=== PATIENT | female | born 1955 | race Caucasian/White ===

== ENCOUNTER → 2017-05-12 09:26 | Outpatient (POV) | payer MEDICARE, SELFPAY | PROVIDERS: Visit Provider Physician Assistant | DX: Z00.00 Encounter for general adult medical examination without abnormal findings (principal) ==

== ENCOUNTER → 2017-06-09 09:17 | Outpatient (POV) | payer MEDICARE, SELFPAY | PROVIDERS: Visit Provider Physician Assistant | DX: Z00.00 Encounter for general adult medical examination without abnormal findings (principal) ==

== ENCOUNTER 2023-07-08 12:32 | Outpatient (CLI) | payer MEDICARE, SELFPAY ==
--- OUTSIDE RECORDS SUMMARY | 2023-07-08 12:36 | XMS_ITS | Continuity of Care Document ---
Author Name Unknown Address [address] [place] [phone] Organization [facility] Phone Care Team Providers Care Regional Program Manager Name Role Phone GREY SALDAÑA Admitting GREY SALDAÑA Unavailable GREY SALDAÑA Primary Care GREY SALDAÑA Primary Attending ALLERGIES AND ADVERSE REACTIONS ALLERGIES AND ADVERSE REACTIONS Code System Allergy Substance Adverse Reaction Date Reaction (Severity) Comment Status Reported By Updated By [id number] RXNorm Penicillin Adverse reaction to substance rash active [id number] on January 25, 2014 12:23:04 PM [facility] FAMILY HISTORY RELATION: Mother Status: Cause of : Unknown Age at : Unknown SNOMED-CT Diagnosis Age At Onset [id number] Congestive heart failure RELATION: Brother Status: LIVING SNOMED-CT Diagnosis Age At Onset [id number] Malignant tumor of colon RELATION: Sister Status: LIVING SNOMED-CT Diagnosis Age At Onset [id number] Primary fibromyalgia syndrome RESULTS Patient: VINICIUS Khan Date of : 1955 LABORATORY RESULTS Information is not available LABORATORY NARRATIVE RESULTS Information is not available RADIOLOGY RESULTS ORDER 100: CT CHEST LOW DOSE (LOINC: [id number]) ORDER DATE: May 21, 2023 6:11:00 PM [facility] PERFORMING LAB: [address] [id number] Final Result Date: May 21, 2023 6:48:[address] [place] [address] Name: ROSA COLVIN Exam Date: 05/21/2023 : 1955 Age 67 years Gender: F Physician: GREY SALDAÑA Facility: [facility] Facility HSV: Outpatient Exam: CT CHEST LOW DOSE CT CHEST LOW DOSE SCREENING HISTORY: Former smoker, quit 18-20 years prior. 20 pack year history. COMPARISON: None. TECHNIQUE: Axial images were obtained from the lung apices through the midabdomen by computed tomography without the administration of contrast. This was performed as a low dose chest CT for lung cancer screening. This study was performed with techniques to keep radiation doses as low as reasonably achievable, (ALARA). Individualized dose reduction techniques using automated exposure control or adjustment of mA and/or kV according to the patient's size were employed. CTDI: 3.64 mGy DLP: 109.53 mGy*cm FINDINGS: There is no axillary adenopathy. There is no mediastinal or hilar adenopathy. Heart size is normal. There is no pericardial or pleural effusion. The lungs demonstrate mild emphysema. There is no consolidation or pneumothorax. There are punctate calcified granulomas identified. There is no suspicious pulmonary mass or nodule. There is sequela of old trauma involving the anterior left chest wall. Degenerative changes are identified in the spine. No acute bony abnormality is identified. Limited images of the upper abdomen are unremarkable. IMPRESSION: No suspicious pulmonary nodule. LUNG RADS Category 1. Recommend continued annual screening with low-dose chest CT in 12 months. The films were reviewed, interpreted, and dictated by Dr. Lesley Marks Transcribed by Libby Burnham PA-C Dictated By: ANDRE MARKS Transcribed By: ANDRE MARKS Transcribed On: 05/21/2023 2:48 PM Electronically signed by: ANDRE MARKS 05/21/2023 Thank you for referring ROSA COLVIN to [facility]. Legally authenticated by CANDIS Nava MD 2023-05-21 14:48:47 PATHOLOGY NARRATIVE RESULTS Information is not available MICROBIOLOGY RESULTS No Micro Labs/Results Exist for Patient BLOOD ADMIN RESULTS Information is not available MEDICATIONS HOME MEDICATIONS Status RXNORM NDC Medication Dose Route Frequency Dates Comments Reported By Updated By Drug Treatment Unknown DISCHARGE MEDICATIONS Status RXNORM NDC Medication Dose Route Frequency Dates Comments Physician Updated By No Discharge Medication Info rmation Available INPATIENT MEDICATIONS Status RXNORM NDC Medication Dose Route Frequency Rat e Quantity Dates Comments Physician Updated By No Inpatient Medication Info rmation Available SOCIAL HISTORY SOCIAL HISTORY SNOMED-CT Social History Element Description Effective Dates Offered Cessation Comment UpdatedBy [id number] Historical Tobacco smoking status Former Smoker Yes quit 25 years ago [id number] on January 19, 2014 2:38:12 PM [facility] SOCIAL HISTORY - Gender Sex: Female SOCIAL HISTORY - Status : status i nformation is not available Intention in Next Year: intention information is not available SOCIAL HISTORY - Sexual Behavior Sexual Orientation Gender Identity SNOMED-CT Description SNO MED -CT Description Activity Level No of Partners Partner Type UpdatedBy Information is not available HEALTH CONCERNS Problems Concern Status Health Concern problem infor mation not available. Smoking Status Status Years Used Consumed packs p er day Health Concern smoking histo ry information not available. Family History Concern Status Health Concern family histor y information not available. ENCOUNTERS ENCOUNTER INFORMATION Reason for Visit Not Specified Admission May 21, 2023 6:00:[address] [address] Discharge May 21, 2023 11:00:00 PM [facility] D ISCHARGED TO HOME OR SELF CARE ENCOUNTER DIAGNOSES Notes information is not rajwinder ilable. Code System Diagnosis Onset Date Diagnosis information is not available. ABSTRACT DIAGNOSES Code System Diagnosis Updated By F17.210 ICD10 NICOTINE DEPENDE NCE, CIGARETTES, UNCOMPLICATED [id number] on May 19, 2023 1:26:10 PM [facility] CARE TEAM Care Regional Program Manager Role GREY SALDAÑA Admitting GREY SALDAÑA Referring GREY SALDAÑA Primary Care GREY SALDAÑA Primary Attending CARE TEAM CARE director industrial museum Role on Team Status Start Date End Date Update d By PIPER MASSEY PCP normal May 19, 2023 1:26:11 PM [facility] May 21, 2023 11:00:00 PM [facility] [id number] on May 19, 2023 1:26:11 PM [facility] PIPER MASSEY Referring normal May 19, 2023 1:26:10 PM [facility] May 21, 2023 11:00:00 PM [facility] [id number] on May 19, 2023 1:26:11 PM [facility] PIPER MASSEY Attending normal May 19, 2023 1:26:10 PM [facility] May 21, 2023 11:00:00 PM [facility] [id number] on May 19, 2023 1:26:11 PM [facility] PIPER MASSEY Admitting normal May 19, 2023 1:26:10 PM [facility] May 21, 2023 11:00:00 PM [facility] [id number] on May 19, 2023 1:26:11 PM [facility]
--- OUTSIDE RECORDS SUMMARY | 2023-07-08 12:36 | XMS_ITS | Continuity of Care Document ---
Author Name Unknown Address [address] [facility] [place], [place] [phone] Organization [facility] Phone Care Team Providers Care Robot Technician Name Role Phone GREY SALDAÑA Unavailable GREY SALDAÑA Admitting GREY SALDAÑA Primary Attending GREY SALDAÑA Primary Care ALLERGIES AND ADVERSE REACTIONS ALLERGIES AND ADVERSE REACTIONS Code System Allergy Substance Adverse Reaction Date Reaction (Severity) Comment Status Reported By Updated By 7984 RXNorm Penicillin Adverse reaction to substance rash active [id number] on January 25, 2014 12:23:04 PM [facility] FAMILY HISTORY RELATION: Mother Status: Cause of : Unknown Age at : Unknown SNOMED-CT Diagnosis Age At Onset [id number] Congestive heart failure RELATION: Brother Status: LIVING SNOMED-CT Diagnosis Age At Onset [id number] Malignant tumor of colon RELATION: Sister Status: LIVING SNOMED-CT Diagnosis Age At Onset [id number] Primary fibromyalgia syndrome TREATMENT PLAN DISCHARGE MEDICATIONS Status RXNORM Medication Dose Route Frequency Dates Comments U pdated By Patient discharge medication information is not available. PATIENT OPEN ORDERS Code System Description Frequency Occurrences Priority [place] [address] [facility] Skeletal system DXA Bone density ONE TIME 0 Routine June 02, 2023 5:25:00 PM [facility] PIPER ARIZMENDI [id number] on June 02, 2023 5:25:00 PM [facility] SCHEDULED PROCEDURES Code System Description Status Scheduled Date Upd ated By Patient scheduled procedure information is not available. MEDICATIONS HOME MEDICATIONS Status RXNORM NDC Medication [...] Description Effective Dates Offered Cessation Comment UpdatedBy [id number] Historical Tobacco smoking status Former Smoker Yes quit 25 years ago [id number] on January 19, 2014 2:38:12 PM [facility] SOCIAL HISTORY - Gender Sex: Female SOCIAL [...] INFORMATION Reason for Visit Not Specified Admission June 02, 2023 4:40:[address] [address] Discharge June 02, 2023 4:40:00 PM [facility] DIS CHARGED TO HOME OR SELF CARE ENCOUNTER DIAGNOSES Notes information is not rajwinder ilable. Code System Diagnosis Onset Date Diagnosis information is not available. ABSTRACT DIAGNOSES Code System Diagnosis Updated By Z13.820 ICD10 ENCOUNTER FOR SC REENING FOR OSTEOPOROSIS [id number] on May 22, 2023 3:41:47 PM [facility] CARE TEAM Care Robot Technician Role GREY SALDAÑA Referring GREY SALDAÑA Admitting GREY SALDAÑA Primary Attending GREY SALDAÑA Primary Care CARE TEAM CARE daycare teacher Role on Team Status Start Date End Date Update d By PIPER MASSEY PCP normal May 22, 2023 3:41:47 PM [facility] June 02, 2023 4:40:00 PM [facility] [id number] on May 22, 2023 3:41:47 PM [facility] PIPER MASSEY Referring normal May 22, 2023 3:41:47 PM [facility] June 02, 2023 4:40:00 PM [facility] [id number] on May 22, 2023 3:41:47 PM [facility] PIPER MASSEY Attending normal May 22, 2023 3:41:47 PM [facility] June 02, 2023 4:40:00 PM [facility] [id number] on May 22, 2023 3:41:47 PM [facility] PIPER MASSEY Admitting normal May 22, 2023 3:41:47 PM [facility] June 02, 2023 4:40:00 PM [facility] [id number] on May 22, 2023 3:41:47 PM [facility]
--- OUTSIDE RECORDS SUMMARY | 2023-07-08 12:36 | XMS_ITS | Continuity of Care Document ---
Author Name Unknown Address [address] [place] [phone] Organization [facility] Phone Care Team Providers Care Pipe Covering Molder Name Role Phone GREY SALDAÑA Primary Attending GREY SALDAÑA Unavailable GREY SALDAÑA Admitting GREY SALDAÑA Primary Care ALLERGIES AND ADVERSE REACTIONS ALLERGIES AND ADVERSE REACTIONS Code System Allergy Substance Adverse Reaction Date Reaction (Severity) Comment Status Reported By Updated By 7971 RXNorm Penicillin Adverse reaction to substance rash active [id number] on January 25, 2014 12:23:04 PM [facility] FAMILY H[facility] RELATION: Mother Status: Cause of : Unknown Age at : Unknown SNOMED-CT Diagnosis Age At Onset [id number] Congestive heart failure RELATION: Brother Status: LIVING SNOMED-CT Diagnosis Age At Onset [id number] Malignant tumor of colon RELATION: Sister Status: LIVING SNOMED-CT Diagnosis Age At Onset [id number] Primary fibromyalgia syndrome RESULTS Patient: VINICIUS Khan Date of : 1955 LABORATORY RESULTS Information is not available LABORATORY NARRATIVE RESULTS Information is not available RADIOLOGY RESULTS ORDER 100: ECHOCARDIOGRAM (L OINC: [id number]) ORDER DATE: June 13, 2023 6:16:00 PM [facility] PERFORM[facility] LAB: [address] [id number] Final Result Date: June 16, 2023 12:55:[address] [place] [address] Name: ROSA COLVIN Exam Date: 06/13/2023 : 1955 Age 67 years Gender: F Physician: GREY SALDAÑA Facility: [facility] Facility HSV: Outpatient Exam: ECHOCARDIOGRAM Conclusions: 1. Normal LV size and function. 2. Estimated left ventricular ejection fraction is 55-60%. 3. There is borderline concentric left ventricle hypertrophy. 4. Grade 1 diastolic dysfunction consistent with impaired relaxation and normal filling pressures. 5. Mild mitral valve regurgitation. 6. Mild aortic valve regurgitation. Findings: Left Ventricle:Normal LV size and function. Normal left ventricular systolic function. There is borderline concentric left ventricle hypertrophy. No left ventricular thrombus noted. Normal global wall motion. No regional wall motion abnormalities. Left ventricular ejection fraction estimated by 2D at 55-60 percent. Grade 1 diastolic dysfunction consistent with impaired relaxation and normal filling pressures. Right Ventricle:Normal RV size. Normal right ventricular wall motion. Left Atrium:Normal left atrial size. Right Atrium:Normal right atrial size. Mitral Valve:Normal mitral valve structure and function. No mitral valve prolapse is present. Mild mitral valve regurgitation. Tricuspid Valve:There is mild to moderate tricuspid valve regurgitation. Normal tricuspid valve structure and function. Aortic Valve:Mild aortic valve regurgitation. Normal aortic valve structure and function. Pulmonic Valve:The pulmonic valve is poorly seen. Pericardium:Normal pericardium. No pericardial effusion. Electronically signed LORRI MARI MD 06/13/23 5:01 PM Study Data 2D Measurements LVIDd:0.81 (4.2-5.9) cm LVIDs:4.17 (2.1-4.0) cm LVPWd:4.74 (0.6-1.0) cm EF:6678.59 (>=55) % FS:418.02 (25-43) % SV:76.28 (70-100) ml EDV:1.14 (67-155) ml ESV:77.42 (22-58) ml LVOT Diam:1.92 (1.8-2.4) cm M-MODE Measurements Mitral Valve Peak E:0.49 (0.6-1.3) m/s Peak A:0.71 (<=.7) m/s E/A Ratio:0.69 (.75-1.5) PHT:66.75 ms MVA by PHT:3.3 (4-6) cm2 DS:213.36 cm/s2 DT:230.16 (<=200) ms Tricuspid Valve TR Peak Sixto:2.86 m/s TR Peak Grad:32.64 mmHg Legally authenticated by KAMALJIT BLACKMON MD 2023-06-16 08:56:36 RAP:10 (5-10) mmHg RVSP:42.64 (<=30) mmHg Aortic Valve Peak:1.28 (<=2.5) m/s Peak Grad:6.55 (<=16) mmHg Mean:0.77 m/s Mean Grad:2.96 (<=5) mmHg AV VTI:28.22 cm GHAZALA(sixto):2.02 (3-5) cm2 LVOT PV:0.89 (0.7-1.1) m/s LVOT P.19 mmHg Pulmonic Valve Report for ROSA COLVIN [id number] on 06/13/23 Dictated By: LORRI MARI Transcribed By: Griselda Lane Transcribed On: 06/16/2023 8:55 AM Electronically signed by: LORRI MARI 06/16/2023 Thank you for referring ROSA COLVIN to [facility]. Legally authenticated by KAMALJIT BLACKMON MD 2023-06-16 08:56:36 PATHOLOGY NARRATIVE RESULTS Information is not available [...] Description Effective Dates Offered Cessation Comment UpdatedBy [id number] Historical Tobacco smoking status Former Smoker Yes quit 25 years ago [id number] on January 19, 2014 2:38:12 PM [facility] SOCIAL HISTORY - Gender Sex: Female SOCIAL [...] available. ENCOUNTERS ENCOUNTER INFORMATION Reason for Visit EDEMA AND SOB Admission June 13, 2023 6:08:00 PM UTC [facility] [address] [facility] [address] Discharge June 13, 2023 6:08:00 PM UTC DI SCHARGED TO HOME OR SELF CARE ENCOUNTER DIAGNOSES Notes information is not ghazala ilable. Code System Diagnosis Onset Date Diagnosis information is not available. ABSTRACT DIAGNOSES Code System Diagnosis Updated By R60.0 ICD10 LOCALIZED EDEMA [id number] on A pri 2023 3:04:39 PM UTC R60.0 ICD10 LOCALIZED EDEMA [id number] on A pri 2023 3:04:39 PM [place] R06.02 ICD10 SHORTNESS OF BREATH [id number] on June 16, 2023 3:04:39 PM [facility] CARE TEAM Care Pipe Covering Molder Role GREY SALDAÑA Primary Attending GREY SALDAÑA Referring GREY SALDAÑA Admitting GREY SALDAÑA Primary Care CARE TEAM CARE roll carrier Role on Team Status Start Date End Date Update d By PIPER MASSEY PCP normal May 29, 2023 5:28:44 PM [place] June 13, 2023 4:00:00 AM [place] [id number] on May 29, 2023 5:28:44 PM [place] PIPER MASSEY Referring normal May 29, 2023 5:28:44 PM [place] June 13, 2023 4:00:00 AM [place] [id number] on May 29, 2023 5:28:44 PM [facility] PIPER MASSEY Attending normal May 29, 2023 5:28:44 PM [place] June 13, 2023 4:00:00 AM [place] [id number] on May 29, 2023 5:28:44 PM [facility] PIPER MASSEY Admitting normal May 29, 2023 5:28:43 PM [place] June 13, 2023 4:00:00 AM [place] [id number] on May 29, 2023 5:28:44 PM [facility]
--- OUTSIDE RECORDS SUMMARY | 2023-07-08 12:36 | XMS_ITS | Continuity of Care Document ---
Author Name Unknown Address [address] [place] [phone] Organization [facility] Phone Care Team Providers Care Lead Enterprise Architect Name Role Phone GREY SALDAÑA Unavailable GREY SALDAÑA Admitting GREY SLADAÑA Primary Attending GREY SALDAÑA Primary Care ALLERGIES AND ADVERSE REACTIONS ALLERGIES AND ADVERSE REACTIONS Code System Allergy Substance Adverse Reaction Date Reaction (Severity) Comment Status Reported By Updated By 7974 RXNorm Penicillin Adverse reaction to substance rash active [id number] on January 25, 2014 12:23:04 PM [facility] FAMILY HISTORY RELATION: Mother Status: Cause of : Unknown Age at : Unknown SNOMED-CT Diagnosis Age At Onset [id number] Congestive heart failure RELATION: Brother Status: LIVING SNOMED-CT Diagnosis Age At Onset [id number] Malignant tumor of colon RELATION: Sister Status: LIVING SNOMED-CT Diagnosis Age At Onset [id number] Primary fibromyalgia syndrome RESULTS Patient: VINICIUS Khan Date of : 1955 LABORATORY RESULTS Information is not available LABORATORY NARRATIVE RESULTS Information is not available RADIOLOGY RESULTS ORDER 200: DE DEXA AXIAL (LO INC: [id number]) ORDER DATE: June 02, 2023 5:25:00 PM [facility] PERFORMING LAB: [address] [id number] Final Result Date: June 02, 2023 5:54:[address] [place] [address] Name: ROSA COLVIN Exam Date: 06/02/2023 : 1955 Age 67 years Gender: F Physician: GREY SALDAÑA Facility: [facility] Facility HSV: Outpatient Exam: DE DEXA AXIAL BONE MINERAL DENSITOMETRY, DEXA SCAN CLINICAL HISTORY: Osteoporosis screening. Comparison: 05/17/2020. FINDINGS: Bone densitometry calculations of the lumbar spine and femurs were obtained. Average BMD for the lumbar spine from L1-L4 is 0.936 g/sq cm. T-score is -2.0. Z-score is -1.4. Lumbar bone mineral density has increased 4.5% from the prior study. Left femoral neck BMD is 0.793 g/sq cm. T-score is -1.8. Z score is -0.8. Dual femur bone mineral density has not statistically significantly changed from the prior study. Right femoral neck BMD is 0.748 g/sq cm. T-score is -2.1. Z score is -1.1. IMPRESSION: 1. Osteopenia BMD of the lumbar spine. 2. Osteopenia BMD of the left femoral neck. 3. Osteopenia BMD of the right femoral neck. FRAX results gives 10 year probability of a major osteoporotic fracture as 16.9 % and a hip fracture as 2.9 % Films reviewed , interpreted and dictated by Dr. Lesley Marks. Transcribed by Carlos Covarrubias PA-C. Dictated By: ANDRE MARKS Transcribed By: ANDRE MARKS Transcribed On: 06/02/2023 1:54 PM Electronically signed by: ANDRE MARKS 06/02/2023 Thank you for referring ROSA COLVIN to [facility]. Legally authenticated by CANDIS Nava MD 2023-06-02 13:54:07 PATHOLOGY NARRATIVE RESULTS Information is not available [...] Description Effective Dates Offered Cessation Comment UpdatedBy [id number] Historical Tobacco smoking status Former Smoker Yes quit 25 years ago [id number] on January 19, 2014 2:38:12 PM [facility] SOCIAL HISTORY - Gender Sex: Female [...] available. ENCOUNTERS ENCOUNTER INFORMATION Reason for Visit F17.210 Admission June 02, 2023 4:40:[address] [address] Discharge June 02, 2023 4:40:00 PM [facility] DIS CHARGED TO HOME OR SELF CARE ENCOUNTER DIAGNOSES Notes information is not rajwinder ilable. Code System Diagnosis Onset Date Diagnosis information is not available. ABSTRACT DIAGNOSES Code System Diagnosis Updated By Z13.820 ICD10 ENCOUNTER FOR SC REENING FOR OSTEOPOROSIS [id number] on June 03, 2023 11:58:04 AM [facility] Z13.820 ICD10 ENCOUNTER FOR SC REENING FOR OSTEOPOROSIS [id number] on June 03, 2023 11:58:04 AM [facility] Z12.2 ICD10 ENCOUNTER FOR SC REENING FOR MALIGNANT NEOPLASM OF RESPIRATORY ORGANS [id number] on June 03, 2023 11:58:04 AM [facility] Z87.891 ICD10 PERSONAL HISTORY OF NICOTINE DEPENDENCE [id number] on June 03, 2023 11:58:04 AM [facility] R06.02 ICD10 SHORTNESS OF BREATH [id number] on June 03, 2023 11:58:04 AM [facility] M85.89 ICD10 OTHER SPECIFIED DISORDERS OF BONE DENSITY AND STRUCTURE, MULTIPLE SITES [id number] on June 03, 2023 11:58:04 AM [facility] CARE TEAM Care Lead Enterprise Architect Role GREY SALDAÑA Referring GREY SALDAÑA Admitting GREY SALDAÑA Primary Attending GREY SALDAÑA Primary Care CARE TEAM CARE field cane scaler Role on Team Status Start Date End Date Update d By PIPER ARIZMENDI PHY PCP normal May 22, 2023 3:41:47 PM [facility] June 02, 2023 4:00:00 AM [facility] [id number] on May 22, 2023 3:41:47 PM [place] PIPER MASSEY Referring normal May 22, 2023 3:41:47 PM UTC June 02, 2023 4:00:00 AM [place] [id number] on May 22, 2023 3:41:47 PM [place] PIPER MASSEY Attending normal May 22, 2023 3:41:47 PM UTC June 02, 2023 4:00:00 AM [place] [id number] on May 22, 2023 3:41:47 PM UTC PIPER MASSEY Admitting normal May 22, 2023 3:41:47 PM UTC June 02, 2023 4:00:00 AM [place] [id number] on May 22, 2023 3:41:47 PM UTC
--- OUTSIDE RECORDS SUMMARY | 2023-07-08 12:36 | XMS_ITS | Continuity of Care Document ---
Author Name Unknown Address [address] [facility] [place] [id number] Organization [facility] Phone Care Team Providers Care Pool Hand Name Role Phone GREY SALDAÑA Primary Attending GREY SALDAÑA Unavailable GREY SALDAÑA Admitting GREY SALDAÑA Primary Care ALLERGIES AND ADVERSE REACTIONS ALLERGIES AND ADVERSE REACTIONS Code System Allergy Substance Adverse Reaction Date Reaction (Severity) Comment Status Reported By Updated By [id number] RXNorm Penicillin Adverse reaction to substance rash active [id number] on January 25, 2014 12:23:04 PM [facility] FAMILY HISTORY RELATION: Mother Status: Cause of : Unknown Age at : Unknown SNOMED-CT Diagnosis Age At Onset [id number] Congestive heart failure RELATION: Brother Status: LIVING SNOMED-CT Diagnosis Age At Onset [id number] Malignant tumor of colon RELATION: Sister Status: LIVING SNOMED-CT Diagnosis Age At Onset [id number] Primary fibromyalgia syndrome TREATMENT PLAN DISCHARGE MEDICATIONS Status RXNORM Medication Dose Route Frequency Dates Comments U pdated By Patient discharge medication information is not available. PATIENT OPEN ORDERS Code System Description Frequency Occurrences Priority [place] [address] [facility] Cardiac echo study ONE TIME 0 Routine June 13, 2023 6:16:00 PM [facility] PIPER ARIZMENDI [id number] on June 13, 2023 6:16:00 PM [facility] SCHEDULED PROCEDURES Code System Description Status [...] Description Effective Dates Offered Cessation Comment UpdatedBy [id number] Historical Tobacco smoking status Former Smoker Yes quit 25 years ago [id number] on January 19, 2014 2:38:12 PM [facility] SOCIAL HISTORY - Gender Sex: Female [...] SOB Admission June 13, 2023 6:08:00 PM [facility] [address] [facility] [id number] Discharge June 13, 2023 6:08:00 PM [facility] DI SCHARGED TO HOME OR SELF CARE ENCOUNTER DIAGNOSES Notes information is not rajwinder ilable. Code System Diagnosis Onset Date Diagnosis information is not available. ABSTRACT DIAGNOSES Code System Diagnosis Updated By R06.02 ICD10 SHORTNESS OF BREATH [id number] on May 29, 2023 5:28:43 PM [facility] CARE TEAM Care Pool Hand Role GREY SALDAÑA Primary Attending GREY SALDAÑA Referring GREY SALDAÑA Admitting GREY SALDAÑA Primary Care CARE TEAM CARE chair post machine operator Role on Team Status Start Date End Date Update d By PIPER MASSEY PCP normal May 29, 2023 5:28:44 PM [facility] June 13, 2023 6:08:00 PM [facility] [id number] on May 29, 2023 5:28:44 PM [facility] PIPER MASSEY Referring normal May 29, 2023 5:28:44 PM [facility] June 13, 2023 6:08:00 PM [facility] [id number] on May 29, 2023 5:28:44 PM [facility] PIPER MASSEY Attending normal May 29, 2023 5:28:44 PM [facility] June 13, 2023 6:08:00 PM [facility] [id number] on May 29, 2023 5:28:44 PM [facility] PIPER MASSEY Admitting normal May 29, 2023 5:28:43 PM [facility] June 13, 2023 6:08:00 PM [facility] [id number] on May 29, 2023 5:28:44 PM [facility]
--- OUTSIDE RECORDS SUMMARY | 2023-07-08 12:36 | XMS_ITS | Continuity of Care Document ---
Author Name Unknown Address [address] [place] [id number] Organization [facility] Phone Care Team Providers Care Home Inspector Name Role Phone GREY SALDAÑA Admitting GREY SALDAÑA Unavailable GREY SALDAÑA Primary Care GREY SALDAÑA Primary Attending ALLERGIES AND ADVERSE REACTIONS ALLERGIES AND ADVERSE REACTIONS Code System Allergy Substance Adverse Reaction Date Reaction (Severity) Comment Status Reported By [place] By [id number] RXNorm Penicillin Adverse reaction to substance rash active [id number] on January 25, 2014 12:23:04 PM [facility] FAMILY HISTORY RELATION: Mother Status: Cause of : Unknown Age at : Unknown SNOMED-CT Diagnosis Age At Onset [id number] Congestive heart failure RELATION: Brother Status: LIVING SNOMED-CT Diagnosis Age At Onset [id number] Malignant tumor of colon RELATION: Sister Status: LIVING SNOMED-CT Diagnosis Age At Onset [id number] Primary fibromyalgia syndrome RESULTS Patient: VINICIUS Khan Date of : 1955 LABORATORY RESULTS Information is not available LABORATORY NARRATIVE RESULTS Information is not available RADIOLOGY RESULTS ORDER 100: CT CHEST LOW DOSE (LOINC: [id number]) ORDER DATE: May 21, 2023 6:11:00 PM [facility] PERFORMING LAB: [address] [id number] Final Result Date: May 21, 2023 6:48:[address] [place] [address] Name: ROSA COLVIN Exam Date: 05/21/2023 : 1955 Age 67 years Gender: F Physician: GREY SALDAÑA Facility: [facility] Facility HSV: Outpatient Exam: CT CHEST LOW [...] Thank you for referring ROSA COLVIN to [facility]. Legally authenticated by CANDIS Nava [...] Description Effective Dates Offered Cessation Comment UpdatedBy [id number] Historical Tobacco smoking status Former Smoker Yes quit 25 years ago [id number] on January 19, 2014 2:38:12 PM [facility] SOCIAL HISTORY - Gender Sex: Female [...] ENCOUNTER INFORMATION Reason for Visit F17.210 Admission May 21, 2023 6:00:00 PM [facility] [address] [facility] [id number] Discharge May 21, 2023 11:00:00 PM [facility] D ISCHARGED TO HOME OR SELF CARE ENCOUNTER DIAGNOSES Notes information is not rajwinder ilable. Code System Diagnosis Onset Date Diagnosis information is not available. ABSTRACT DIAGNOSES Code System Diagnosis Updated By Z12.2 ICD10 ENCOUNTER FOR SC REENING FOR MALIGNANT NEOPLASM OF RESPIRATORY ORGANS [id number] on May 23, 2023 12:18:19 PM [facility] Z12.2 ICD10 ENCOUNTER FOR SC REENING FOR MALIGNANT NEOPLASM OF RESPIRATORY ORGANS [id number] on May 23, 2023 12:18:19 PM [facility] Z87.891 ICD10 PERSONAL HISTORY OF NICOTINE DEPENDENCE [id number] on May 23, 2023 12:18:19 PM [facility] CARE TEAM Care Home Inspector Role GREY SALDAÑA Admitting GREY SALDAÑA Referring GREY SALDAÑA Primary Care GREY SALDAÑA Primary Attending CARE TEAM CARE e business project manager Role on Team Status Start Date End Date Update d By PIPER MASSEY PCP normal May 19, 2023 1:26:11 PM [facility] May 21, 2023 4:00:00 AM [facility] [id number] on May 19, 2023 1:26:11 PM [facility] PIPER MASSEY Referring normal May 19, 2023 1:26:10 PM [facility] May 21, 2023 4:00:00 AM [facility] [id number] on May 19, 2023 1:26:11 PM [facility] PIPER MASSEY Attending normal May 19, 2023 1:26:10 PM [facility] May 21, 2023 4:00:00 AM [facility] [id number] on May 19, 2023 1:26:11 PM [facility] PIPER MASSEY Admitting normal May 19, 2023 1:26:10 PM [facility] May 21, 2023 4:00:00 AM [facility] [id number] on May 19, 2023 1:26:11 PM [facility]
[2023-07-08 12:45] VITALS: BP 158/73; PULSE 58; RESP 18; TEMP 36.6; O2SAT 95
[2023-07-08] MEDS: DENOSUMAB 60 MG/ML SYRINGE SQ (12:45)
== END 2023-07-08 13:20 | disposition home or self-care (01) ==
LOC: INF 12:34
PROVIDERS: PCP Family Medicine; Visit Provider Family Medicine
DX: M85.80 Other specified disorders of bone density and structure, unspecified site (principal)
CPT/HCPCS: 96372; J0897

== ENCOUNTER 2024-01-08 12:41 | Outpatient (CLI) | payer MEDICARE, SELFPAY ==
[2024-01-08 12:59] VITALS: BP 154/89; PULSE 63; RESP 16; TEMP 36.6; O2SAT 98
[2024-01-08] MEDS: DENOSUMAB 60 MG/ML SYRINGE SUBCUT (12:59)
[2024-01-08 13:10] VITALS: BP 140/71; PULSE 61; RESP 16; TEMP 36.6; O2SAT 98
== END 2024-01-08 13:10 | disposition home or self-care (01) ==
LOC: INF 12:42
PROVIDERS: PCP Family Medicine; Visit Provider Family Medicine
DX: M81.0 Age-related osteoporosis without current pathological fracture (principal); M85.80 Other specified disorders of bone density and structure, unspecified site
CPT/HCPCS: 96372; J0897

== ENCOUNTER 2024-08-12 12:34 | Outpatient (CLI) | payer MEDICARE, SELFPAY ==
--- OUTSIDE RECORDS SUMMARY | 2024-08-12 12:36 | XMS_ITS | Clinical Summary ---
Author Organization [facility] Address [address] [place] [address] Care Team Providers Care City Manager Name Role Phone Sarah Rea DO Primary Care Provider [phone] Allergies Active Allergy Reactions Criticality Noted Date Comments Penicillins Unknown - Patient st ates they do not know rxn details Low 08/10/2019 Occurred as a child Medications traMADol (Ultram) 50 MG tablet Take 50 mg by mouth 2 (two) times a day. 08/21/2020 Active pravastatin (Pravachol) 20 MG tablet TAKE 1 TABLET AT BEDTIME. 08/10/2019 Active lisinopril-hydro CHLOROthiazide 20-25 MG tablet TAKE 1 TABLET DAILY. 08/10/2019 Active omeprazole (PriLOSEC) [address] capsule Take 20 mg by mouth 1 (one) time each day. 08/10/2019 Active Calcium Carb-Cholecalcif francisco 600-800 MG-UNIT tablet Take 1 tablet by mouth 1 (one) time each day. 08/10/2019 Active aspirin 81 MG EC tablet Take 81 mg by mouth 1 (one) time each day. Active Multiple Vitamins-Mineral s (CENTRUM SILVER 50+WOMEN PO) Take 1 tablet by mouth 1 (one) time each day. Active methocarbamol (Robaxin) 500 MG tablet Take 1 tablet (500 mg total) by mouth every 6 (six) hours if needed for muscle spasms for up to 14 days. 30 tablet 10/10/2020 Active Active Problems Problem Noted Date Diagnosed Date Hyperlipemia 10/06/2020 Overview (10/06/2020): - home statin GERD (gastroesophageal reflux disease) Overview (10/06/2020): - home PPI Hypertension 10/05/2020 Overview (10/06/2020): - holding home lisinopril-hctz Abnormal CT of the abdomen 08/10/2019 Resolved Problems Problem Noted Date Diagnosed Date Resolved Date Corneal abrasion 10/06/2020 10/10/2020 Overview (10/06/2020): - prn eye drops Diverticulitis large intesti ne w/o perforation or abscess w/o bleeding 10/05/202009/24 Diverticulitis of large inte lili without perforation or abscess without bleeding 08/10/2019 10/10/2020 Overview (10/08/2020): Multiple episodes of diverticulitis. She presented on 10/05 for elective surgery. S/p laparoscopic sigmoid colectomy with primary anastomosis and appendectomy - mIVF @ 41 - Regular Diet - completed 24hrs cefepime/Flagyl for abscess present during the operation - Multimodal pain control: PO Pain meds - Passing flatus, stool - IS/OOB Family History Medical History Relation Name Comments Liver cancer Brother 1 Bone cancer Brother 2 Colon cancer Brother 3 COPD Mother Heart failure Mother Relation Name Status Comments Brother 1 Brother 2 Brother 3 Mother Social History Tobacco Use Types Packs/Day Years Used Date Smoking Tobacco: Former Cigarettes Q uit: 10/02/1989 Smokeless Tobacco: Never Alcohol Use Standard Drinks/Week Comments No 0 (1 standard drink = 0.6 oz pur e alcohol) PHQ-2 Answer Date Recorded Patient Health Questionnaire-2 Score 0 10/31/2020 Comments No Sex and Gender Information Value Date Recorded Sex Assigned at Not on file Legal Sex Female 8:06 PM EDT Gender Identity Not on file Sexual Orientation Not on file Last Filed Vital Signs Vital Sign Reading Time Taken Comments Blood Pressure 143/84 10/31/2020 9:34 AM EDT Pulse 63 10/31/2020 9:34 AM EDT Temperature 36.2 C (97.1 F) 10/31/2020 9:34 AM EDT Respiratory Rate 18 10/10/2020 7:34 AM EDT Oxygen Saturation 95% 10/10/2020 7:34 AM EDT Inhaled Oxygen Concentration - - Weight 86.8 kg (191 lb 5.8 oz) 10/31/2020 9:34 A M EDT Height 154.9 cm (5' 1 ) 10/31/2020 9:34 AM EDT Body Mass Index 36.16 10/31/2020 9:34 AM EDT Plan of Treatment Health Maintenance Due Date Last Done Comments [facility]-Bone Density Scan 1955 [facility]-Hepatitis C Screening 1955 [facility]-Medicare Annual Wellness (AWV) 1955 [facility]-Infant/Child/Adol SDOH Screenings 1955 [facility]- SDOH Screenings 1972 [facility]-Adult SDOH Screenings 1972 [facility]-DTaP,Tdap,and Td Vaccine s (1 - Tdap) 1973 CT Colonography 08/07/1999 FIT-DNA 08/07/1999 FIT 08/07/1999 FOBT 08/07/1999 Sigmoidoscopy 08/07/1999 [facility]-Breast Cancer Screening 2004 [facility]-Pneumococcal Vaccine: 50 + Years (1 of 1 - PCV) 2004 [facility]-Zoster Vaccines (1 of 2) 2004 [facility]-Depression Screening 10/31/2021 10/31/2020 [id number] Vaccine (3 - season) 2023 03/31/2020, 03/01/2020 [facility]-Influenza Vaccine (Seaso n Ended) 2024 11/22/2019 [facility]-RSV Vaccine: 60+ Years o r (1 - 1-dose 75+ series) 2029 Colonoscopy 08/17/2029 08/18/2019, 08/18/2019 [facility]-Colorectal Cancer Screening 08/17/2029 HPV Vaccines Aged Out No longer eligi ble based on patient's age to complete this topic [facility]-HIB Vaccines Aged Out No longer e ligible based on patient's age to complete this topic [facility]-Hepatitis A Vaccines Aged Out No longer eligible based on patient's age to complete this topic [facility]-IPV Vaccines Aged Out No longer e ligible based on patient's age to complete this topic [facility]-Rotavirus Vaccines Aged Out No lo nger eligible based on patient's age to complete this topic Procedures Procedure Name Priority Date/Time Associated Diagnosis Comments COLONOSCOPY 08/18/2019 from Last 3 Months or Most Recently Relevant to Health Maintenance Results * COLONOSCOPY (08/18/2019) Anatomical Region Laterality Modality Endoscopy Narrative 08/18/2019 Ordered by an unspecified provider. us Historical Provider GI PROCEDURE ORDERABLES F inal Result from Last 3 Months or Most Recently Relevant to Health Maintenance Insurance [employer] MED[employer]ARE Care Teams City Manager Relationship Specialty Start Date End Date Sarah Rea DO [address] [place] [address] PCP - General 07/07/20
[2024-08-12] MEDS: DENOSUMAB 60 MG/ML SYRINGE SUBCUT (12:42)
[2024-08-12 12:43] VITALS: BP 147/72; PULSE 66; RESP 17; O2SAT 97
== END 2024-08-12 13:00 | disposition home or self-care (01) ==
LOC: INF 12:35
PROVIDERS: PCP Family Medicine; Visit Provider Family Medicine
DX: M85.80 Other specified disorders of bone density and structure, unspecified site (principal)
CPT/HCPCS: 96372; J0897